=== PATIENT | female | born 1960 | race Caucasian/White ===

== ENCOUNTER 2022-09-24 22:43 | Emergency (ER) | payer OTHER ==
--- NOTE | 2022-09-25 00:42 | ER ---
Nurse's Notes [facility] Name: Claire Mendoza Age: 62 yrs Sex: Female : 1960 Arrival Date: 09/24/2022 Time: 22:43 Bed 11 Private MD: Diagnosis: Left knee osteoarthritis. Left wrist osteoarthritis with exacerbation of chronic pain, right ankle sprain, right foot sprain, acute right foot pain. Diffuse osteoarthritis Presentation: 09/24 23:24 Chief complaint: Chief complaint: Patient states: right foot and right ankle pain of pf1 5,onset 3 days. Patient denies any injury. 23:24 Coronavirus screen: Vaccine status: Patient reports being unvaccinated. Client denies pf1 travel out of the [place] in the last 14 days. At this time, the client does not indicate any symptoms associated with coronavirus-19. Ebola Screen: Patient negative for fever greater than or equal to 101.5 degrees Fahrenheit, and additional compatible Ebola Virus Disease symptoms. Initial Sepsis Screen: Does the patient meet any 2 criteria? No. Patient's initial sepsis screen is negative. Does the patient have a suspected source of infection? No. Patient's initial sepsis screen is negative. Risk Assessment: Do you want to hurt yourself or someone else? Patient reports no desire to harm self or others. 23:24 Method Of Arrival: Ambulatory pf1 23:24 Acuity: VELMA 4 pf1 Historical: - Allergies: 09/25 07:27 No Known Allergies; pf1 - PMHx: 07:27 Osteoporosis; pf1 - PSHx: 07:27 neck surgery; Total abdominal hysterectomy; left thumb; right wrist; right foot; right pf1 elbow; - Immunization history:: Adult Immunizations up to date, Client reports having NOT received the Covid vaccine. Last tetanus immunization: < 5 years ago. - Family history:: not pertinent. - Social history:: Smoking status: Patient reports the use of cigarette tobacco products, smokes one-half pack cigarettes per day. Screenin:00 [facility] ED Fall Risk Assessment (Adult) History of falling in the last 3 months, pf1 including since admission No falls in past 3 months (0 pts) Confusion or Disorientation No (0 pts) Intoxicated or Sedated No (0 pts) Impaired Gait No (0 pts) Mobility Assist Device Used No (0 pt) Altered Elimination No (0 pt) Score/Fall Risk Level 0 - 2 = Low Risk Oriented to surroundings, Maintained a safe environment, Educated pt \T\ family on fall prevention, incl call for assistance when getting out of bed, Assessed \T\ reinforced patient's understanding of fall precautions, Provided non-skid footwear, Hourly rounding (assess needs \T\ fall precautionary measures) done, Used ambulatory aids as needed (educated on \T\ assisted with), Used gait belt as appropriate. 00:00 Abuse screen: Denies threats or abuse. Nutritional screening: No deficits noted. pf1 Tuberculosis screening: No symptoms or risk factors identified. Assessment: 00:00 General: Appears in no apparent distress. comfortable, well groomed, well developed, pf1 Behavior is calm, cooperative, appropriate for age, quiet. 00:00 Pain: Complains of pain in right foot and ankle Pain currently is 5 out of 10 on a pain pf1 scale. Neuro: No deficits noted. Level of Consciousness is awake, alert, obeys commands, Oriented to person, place, time, situation. Cardiovascular: No deficits noted. Capillary refill < 3 seconds Patient's skin is warm and dry. Respiratory: No deficits noted. Airway is patent Respiratory effort is even, unlabored, Respiratory pattern is regular, symmetrical. GI: No deficits noted. No signs and/or symptoms were reported involving the gastrointestinal system. : No deficits noted. No signs and/or symptoms were reported regarding the genitourinary system. EENT: No deficits noted. No signs and/or symptoms were reported regarding the EENT system. Derm: No deficits noted. No signs and/or symptoms reported regarding the dermatologic system. Musculoskeletal: Reports pain in right foot and right ankle. Vital Signs: 09/24 23:24 BP 156 / 83; Pulse 62; Resp 18; Temp 9; pf1 23:24 Temp 97.5; Pulse Ox 100% ; Weight 52.62 kg; Height 5 ft. 1 in. ; Pain 5/10; pf1 09/25 01:00 BP 142 / 78; Pulse 63; Resp 16; Pulse Ox 100% on R/A; pf1 09/24 23:24 Body Mass Index 21.92 (52.62 kg, 154.94 cm) pf1 23:24 Pain Scale: Adult pf1 ED Course: 09/24 22:47 Patient arrived in ED. am2 22:49 Abdiaziz Cornelius MD is Attending Physician. sp4 23:48 Foot Right 3 View XRAY In Process Unspecified. EDMS 23:48 Ankle Right 3 View XRAY In Process Unspecified. EDMS 23:48 Wrist Left (3 View) XRAY In Process Unspecified. EDMS 23:48 Knee Left 3 View XRAY In Process Unspecified. EDMS 09/25 00:00 Patient has correct armband on for positive identification. Bed in low position. Call pf1 light in reach. 00:00 Arm band placed on right wrist. pf1 01:00 Provided Education on: medication administration. pf1 01:00 No provider procedures requiring assistance completed. pf1 01:00 Patient did not have IV access during this emergency room visit. pf1 07:26 Triage completed. pf1 Administered Medications: No medications were administered Medication: 01:00 VIS not applicable for this client. pf1 Outcome: 00:41 Discharge ordered by . sp4 01:00 Discharged to home ambulatory. pf1 01:00 Condition: improved pf1 01:00 Discharge instructions given to patient, family, Instructed on discharge instructions, follow up and referral plans. Demonstrated understanding of instructions, follow-up care. 01:00 Patient left the ED. pf1 Signatures: Dispatcher [employer] [id number] Stacy Jones am2 Nisha Pichardo, RN RN pf1 Abdiaziz Cornelius MD MD sp4 Corrections: (The following items were deleted from the chart) 07:26 09/24 23:24 Chief complaint: pf1 pf1 09/25 07:29 01:08 Patient left the ED. pf1 pf1
--- NOTE | 2022-09-25 00:42 | EDPHYS ---
Physician Documentation [facility] Name: Claire Mendoza Age: 62 yrs Sex: Female : 1960 Arrival Date: 09/24/2022 Time: 22:43 Bed 11 Private MD: ED Physician Abdiaziz Cornelius HPI: 09/24 22:49 This 62 yrs old Female presents to ER via Unassigned with complaints of Foot sp4 Pain. 09/25 00:26 Patient is 62-year-old female with past medical history of osteoarthritis. Right fluid sp4 callus.. 00:37 Patient presents with complaint of a cute onset of right foot and right ankle pain also sp4 left knee pain and also worsening of her chronic arthritis on the left side left wrist. Historical: - Allergies: 07:27 No Known Allergies; pf1 - PMHx: 07:27 Osteoporosis; pf1 - PSHx: 07:27 neck surgery; Total abdominal hysterectomy; left thumb; right wrist; right foot; right pf1 elbow; - Immunization history:: Adult Immunizations up to date, Client reports having NOT received the Covid vaccine. Last tetanus immunization: < 5 years ago. - Family history:: not pertinent. - Social history:: Smoking status: Patient reports the use of cigarette tobacco products, smokes one-half pack cigarettes per day. ROS: 00:37 Constitutional: Negative for fever, chills, and weight loss, MS/Extremity: Negative for sp4 injury and deformity, positive for right foot and the right ankle pain positive for left wrist pain positive left knee pain 00:37 All other systems are negative. Exam: 00:37 Constitutional: This is a well developed, well nourished patient who is awake, alert, sp4 and in no acute distress. Head/Face: Normocephalic, atraumatic. Eyes: Pupils equal round and reactive to light, extra-ocular motions intact. Lids and lashes normal. Conjunctiva and sclera are not injected. Cornea within normal limits. Periorbital areas with no swelling, redness, or edema. ENT: Nares patent. No nasal discharge, no septal abnormalities noted. Tympanic membranes are normal and external auditory canals are clear. Oropharynx with no redness, swelling, or masses, exudates, or evidence of obstruction, uvula midline. Mucous membranes moist. Neck: Trachea midline, no thyromegaly or masses palpated, and no cervical lymphadenopathy. Supple, full range of motion without nuchal rigidity, or vertebral point tenderness. Chest/axilla: Normal chest wall appearance and motion. Nontender with no deformity. No lesions are appreciated. Cardiovascular: Regular rate and rhythm with a normal S1 and S2. No gallops, murmurs, or rubs. Normal PMI, no JVD. No pulse deficits. Respiratory: Lungs have equal breath sounds bilaterally, clear to auscultation and percussion. No rales, rhonchi or wheezes noted. No increased work of breathing, no retractions or nasal flaring. Abdomen/GI: Soft, non-tender, with normal bowel sounds. No distension or tympany. No guarding or rebound. No evidence of tenderness throughout. Back: No spinal tenderness. No costovertebral tenderness. Skin: Warm, dry with normal turgor. Normal color with no rashes, no lesions, and no evidence of cellulitis. MS/ Extremity: Noted forPulses equal, no cyanosis. Neurovascular intact. Full, normal range of motion. Positive for left foot left ankle tenderness with medial swelling. Positive for left wrist tenderness positive left knee tenderness no deformity or swelling. Intact neurovascular status of all extremity Neuro: Awake and alert, GCS 15, oriented to person, place, time, and situation. Cranial nerves II-XII grossly intact. Motor strength 5/5 in all extremities. Sensory grossly intact. Psych: Awake, alert, with orientation to person, place and time. Behavior, mood, and affect are within normal limits Vital Signs: 09/24 23:24 BP 156 / 83; Pulse 62; Resp 18; Temp 9; pf1 23:24 Temp 97.5; Pulse Ox 100% ; Weight 52.62 kg; Height 5 ft. 1 in. ; Pain 5/10; pf1 09/25 01:00 BP 142 / 78; Pulse 63; Resp 16; Pulse Ox 100% on R/A; pf1 09/24 23:24 Body Mass Index 21.92 (52.62 kg, 154.94 cm) pf1 23:24 Pain Scale: Adult pf1 Procedures: 00:37 Splinting: Splint applied to right calf, right Achilles and right heel using Ortho 3D sp4 boot, applied by myself. Examined by me, post splint application: neurovascular intact, 2+ distal pulses palpable, brisk capillary refill noted, Patient tolerated well, Advised weightbearing on the right heel only for 2-weeks . MDM: 09/24 22:51 Patient medically screened. sp4 09/25 00:15 Data reviewed: vital signs, nurses notes. ED course: CLINICAL HISTORY: pain with sp4 ambulation COMPARISON: None. TECHNIQUE: XR KNEE 3 VIEWS 09/24/2022 11:00 PM CDT FINDINGS: There is no fracture. Joint spaces are preserved. Soft tissues are unremarkable. IMPRESSION: No acute osseous findings. Electronically signed by: Benjie Nunn MD 09/25/2022 12:03 AM. ED course: CLINICAL HISTORY: pain with movement COMPARISON: None. TECHNIQUE: XR WRIST 3 OR MORE VIEWS 09/24/2022 11:00 PM CDT FINDINGS: There is no fracture. Joint spaces are preserved. Soft tissues are unremarkable. There is plate and screw fixation fusion of the first MCP joint. IMPRESSION: No acute osseous findings. . ED course: CLINICAL HISTORY: pain on ambulation COMPARISON: None. TECHNIQUE: XR ANKLE 3 OR MORE VIEWS 09/24/2022 11:00 PM CDT FINDINGS: There is no fracture. Joint spaces are preserved. Soft tissues are unremarkable. IMPRESSION: No acute osseous findings. Electronically signed by: Benjie Nunn MD 09/25/2022 12:02 AM . ED course: CLINICAL HISTORY: pain on ambulation COMPARISON: None. TECHNIQUE: XR FOOT 3 OR MORE VIEWS 09/24/2022 11:00 PM CDT FINDINGS: There is no fracture. Joint spaces are preserved. Soft tissues are unremarkable. IMPRESSION: No acute osseous findings. . 00:37 Differential diagnosis: fracture, sprain, arthritis, gout, cellulitis. Data reviewed: sp4 radiologic studies, plain films. ED course: The boot was applied. Patient stable for discharge home she was advised to see web editor in her area of residence which is [facility]. 09/24 23:00 Order name: Foot Right 3 View XRAY sp4 09/24 23:00 Order name: Ankle Right 3 View XRAY sp4 09/24 23:00 Order name: Wrist Left (3 View) XRAY sp4 09/24 23:00 Order name: Knee Left 3 View XRAY sp4 Administered Medications: No medications were administered Disposition Summary: 09/25/22 00:41 Discharge Ordered Location: Home sp4 Problem: new sp4 Symptoms: are unchanged sp4 Condition: Stable sp4 Diagnosis - Left knee osteoarthritis. Left wrist osteoarthritis with exacerbation of chronic sp4 pain, right ankle sprain, right foot sprain, acute right foot pain. Diffuse osteoarthritis Followup: sp4 - With: Private Physician - When: 7 - 10 days - Reason: Recheck today's complaints Discharge Instructions: - Discharge Summary Sheet sp4 - Osteoarthritis sp4 - Preventing Osteoarthritis, Adult sp4 Forms: - Patient Portal Instructions sp4 Signatures: Dispatcher [employer] Nisha Fernandez RN RN pf1 Abdiaziz Cornelius MD MD sp4
--- NOTE | 2022-09-25 13:38 | RAD REPORT ---
EXAM DESCRIPTION: RAD - Foot Right 3 View - 09/24/2022 11:46 pm CLINICAL HISTORY: Pain on ambulation COMPARISON: None. TECHNIQUE: XR FOOT 3 OR MORE VIEWS 09/24/2022 11:00 PM CDT FINDINGS: There is no fracture. Joint spaces are preserved. Soft tissues are unremarkable. IMPRESSION: No acute osseous findings. Electronically signed by: Benjie Nunn MD 09/25/2022 12:01 AM CDT Due to temporary technical issues with the PACS/Fluency reporting system, reports are being signed by the in house radiologist without review as a courtesy to ensure prompt reporting. The interpreting r adiologist is fully responsible for the content of the report.
--- NOTE | 2022-09-25 13:40 | RAD REPORT ---
EXAM DESCRIPTION: RAD - Ankle Right 3 View - 09/24/2022 11:46 pm CLINICAL HISTORY: Pain on ambulation COMPARISON: None. TECHNIQUE: XR ANKLE 3 OR MORE VIEWS 09/24/2022 11:00 PM CDT FINDINGS: There is no fracture. Joint spaces are preserved. Soft tissues are unremarkable. IMPRESSION: No acute osseous findings. Electronically signed by: Benjie Nunn MD 09/25/2022 12:02 AM CDT Due to temporary technical issues with the PACS/Fluency reporting system, reports are being signed by the in house radiologist without review as a courtesy to ensure prompt reporting. The interpreting r adiologist is fully responsible for the content of the report.
--- NOTE | 2022-09-25 13:41 | RAD REPORT ---
EXAM DESCRIPTION: RAD - Knee Left 3 View - 09/24/2022 11:46 pm CLINICAL HISTORY: Pain with ambulation COMPARISON: None. TECHNIQUE: XR KNEE 3 VIEWS 09/24/2022 11:00 PM CDT FINDINGS: There is no fracture. Joint spaces are preserved. Soft tissues are unremarkable. IMPRESSION: No acute osseous findings. Electronically signed by: Benjie Nunn MD 09/25/2022 12:03 AM CDT Due to temporary technical issues with the PACS/Fluency reporting system, reports are being signed by the in house radiologist without review as a courtesy to ensure prompt reporting. The interpreting r adiologist is fully responsible for the content of the report.
--- NOTE | 2022-09-25 13:42 | RAD REPORT ---
EXAM DESCRIPTION: RAD - Wrist Left 3 View - 09/24/2022 11:46 pm CLINICAL HISTORY: Pain with movement COMPARISON: None. TECHNIQUE: XR WRIST 3 OR MORE VIEWS 09/24/2022 11:00 PM CDT FINDINGS: There is no fracture. Joint spaces are preserved. Soft tissues are unremarkable. There i s plate and screw fixation fusion of the first MCP joint. IMPRESSION: No acute osseous findings. Electronically signed by: Benjie Nunn MD 09/25/2022 12:02 AM CDT Due to temporary technical issues with the PACS/Fluency reporting system, reports are being signed by the in house radiologist without review as a courtesy to ensure prompt reporting. The interpreting r adiologist is fully responsible for the content of the report.
== END 2022-09-25 01:08 | disposition home or self-care (01) ==
LOC: ER 22:43
DX: S93.601A Unspecified sprain of right foot, initial encounter (principal); M17.12 Unilateral primary osteoarthritis, left knee; M19.032 Primary osteoarthritis, left wrist; F17.210 Nicotine dependence, cigarettes, uncomplicated
CPT/HCPCS: 99283